=== PATIENT | male | born 1955 | race Caucasian/White ===

== ENCOUNTER 2017-04-10 10:45 | Inpatient (IN) | payer BC ==
[2017-04-04 10:20] VITALS: BMI 37.8
[~2017-04-10 10:45] MED LIST: ACETAMINOPHEN TAB 500 MG TAB PO ONE; HYDROmorphone 0.5 MG/0.5 ML SYRINGE IVP PRN; LIDOCAINE 1% 20 ML VIAL (10MG/ML) FOR IV START INTRADERMA PRN; MELOXICAM 7.5 MG TAB PO ONE; ONDANSETRON 4 MG/2 ML VIAL IVP ONE; TRANEXAMIC ACID 1,000 MG in SODIUM CHLORIDE 0.9% 100 ML IVPB ONE; ceFAZolin 3 GM in SODIUM CHLORIDE 0.9% 100 ML IVPB ONE
[2017-04-10] MEDS: LACTATED RINGERS 1,000 ML IV SCH ×2 (11:33→20:42)
[2017-04-10] MEDS ORDERED: fentaNYL (PF) 50 MCG/ML 2 ML AMP ONE (12:55)
[2017-04-10] MEDS ORDERED: PROPOFOL 10 MG/ML 20 ML VIAL IV ONE (12:55)
[2017-04-10] MEDS ORDERED: diphenhydrAMINE 50 MG/ML 1 ML VIAL ONE (12:55)
[2017-04-10] MEDS ORDERED: TRANEXAMIC ACID 1,000 MG/10 ML VIAL ONE (12:55)
[2017-04-10] MEDS ORDERED: MIDAZOLAM 2 MG/2 ML VIAL ONE (12:55)
[2017-04-10] MEDS ORDERED: SODIUM CHLORIDE 0.9% 100 ML BAG ONE (12:55)
[2017-04-10] MEDS ORDERED: ROPIVACAINE 246.25 MG, EPINEPHrine 0.5 MG, KETOROLAC 30 MG, cloNIDine HCL/PF 80 MCG, WA... MISCELLANE STA ×5 (13:20)
[2017-04-10] MEDS ORDERED: LACTATED RINGERS 1,000 ML IV ONE (13:49)
[2017-04-10] MEDS ORDERED: ceFAZolin 3,000 MG in SODIUM CHLORIDE 0.9% IRRIGATIO 3,000 ML IRRIGATION ONE (13:49)
[2017-04-10] MEDS ORDERED: ONDANSETRON 4 MG/2 ML VIAL IVP PRN (15:26)
[2017-04-10] MEDS ORDERED: HYDROcodone/APAP 7.5-325MG 1 EACH TAB PO PRN (15:26)
[2017-04-10] MEDS ORDERED: MAGNESIUM HYDROXIDE 2,400 MG/10 ML CUP PO PRN (15:26)
[2017-04-10] MEDS ORDERED: BISACODYL 10 MG SUPP RECTAL PRN (15:26)
[2017-04-10] MEDS ORDERED: NALOXONE 0.4 MG/ML 1 ML VIAL IV PRN (15:26)
[2017-04-10] MEDS ORDERED: hydrOXYzine PAMOATE 25 MG CAP PO PRN (15:26)
[2017-04-10] MEDS ORDERED: NA PHOS,M-B/NA PHOS,DI-BA 133 ML ENEMA RECTAL PRN (15:26)
[2017-04-10] MEDS ORDERED: HYDROmorphone 0.5 MG/0.5 ML SYRINGE IVP PRN ×2 (15:26)
[2017-04-10] MEDS ORDERED: ACETAMINOPHEN TAB 325 MG TAB PO PRN (15:26)
--- NOTE | 2017-04-10 15:30 | P.OP ---
Date of Procedure: 04/10/17 Procedure(s) Performed: PREOPERATIVE DIAGNOSIS: Right knee severe osteoarthritis with genu varum POSTOPERATIVE DIAGNOSIS: Right knee severe osteoarthritis with genu varum OPERATION: Right knee cemented total replacement arthroplasty. ANESTHESIA: Spinal ESTIMATED BLOOD LOSS: 100 ml. DIRECTOR OF UNDERGRADUATE ADMISSIONS: Clementine Quijano PA-C (assistance with: patient positioning, retraction, exposure, hemostasis, leg positioning, implantation, irrigation, closure, dressing) COMPLICATIONS: None apparent. COMPONENTS IMPLANTED: Persona system from [employer] INDICATIONS: Mr. Cano is a 61-year-old male with a history of rightknee osteoarthritis. The patient's rightknee is end-stage, and conservative management has failed. The operation of knee replacement has been discussed at length in the office, as well as potential risks and complications. These are inclusive of, but not limited to: bleeding, infection, scarring, discomfort, blood vessel and nerve damage, need for further surgery, failure to relieve symptoms, persistence, recurrence, or worsening of problems, loosening, dislocation, wear, blood clot, pulmonary embolism, , gait dysfunction, stiffness, and other risks as discussed in the office. The patient elects to proceed and the consent form has been signed. PROCEDURE: The patient was taken to the operating room and positioned on the operating room table in the supine position. Anesthesia was initiated. Care was taken to make sure that all pressure points were adequately padded. The operative lower extremity was prepped and draped in the usual aseptic fashion using ChloraPrep. Ioban drape was used for the case and the patient received intravenous antibiotics within one hour of the incision. A pneumotourniquet and leg booker were used for the case. The limb was exsanguinated with an Esmarch bandage and the tourniquet was inflated to 300 mmHg. Time-out was called confirming the patient's identity, side, procedure and administration of antibiotics. The incision was then created midline directly over the knee, carried down through skin and into the subcutaneous tissues and down to fascia. Full thickness subcutaneous medial flap was developed. Medial parapatellar arthrotomy was performed and the interior of the knee was inspected. There was end-stage osteoarthritis of the knee with a mild to moderate genu varum type deformity. The fat pad was excised and proximal medial release on the tibia was completed using meticulous dissection and a curved osteotome. The anterior cruciate ligament was taken down. Note was made of significant attrition of the anterior and significant degenerative appearance of the posterior cruciate ligaments. The exposure was excellent. The knee was flexed 90 degrees and the patella was everted. A spot was chosen on the femur approximately 1 cm anterior to the posterior cruciate ligament insertion and an intramedullary hole was created within the femur. The intramedullary guide was then set to 5 degrees of valgus. The distal cutting block was attached and pinned into position. An appropriate amount of distal femoral resection was set. The oscillating saw was then used to make the distal femoral cut. This cut was confirmed to be flat with the flat end of an osteotome. The retractors were placed around the tibia and the tibial surface was addressed. The angle and depth of resection was adjusted using an extramedullary cutting guide. The guide had a built-in 3 degree posterior slope cut. Once the cutting guide was adjusted appropriately and in line with the axis of the tibia and confirmed to be in good position in relation to the second metatarsal and transmalleolar axis, the tibial cut was then created with protection of the posterior neurovascular structures and the collateral ligaments. The tibial cut surface was removed and sized. Femoral sizing was then accomplished using anterior referencing. Care was taken to analyze the posterior condyles for signs of deficiency or severe wear, and adjustments to the guide were made, as appropriate. 3 degree external rotation pins were placed. The cutting jig for the femur was applied to these pins. The planned cuts were further analyzed prior to performing them with the oscillating saw. No femoral notching was produced. Bone fragments were removed and the cut surfaces were finished, as necessary, with a reciprocating saw. Spacer block technique was then used to confirm that the flexion and extension gaps were equal. Soft tissue releases and adjustment of the tibial and/or femoral cuts were made, as necessary, until the gaps were equal. This included release of the posterior cruciate ligament, which was tight in this patient and , if left unreleased, would have resulted in poor kinematics and possibly early loosening. The femur was then further finished for a posterior cruciate ligament substituting component. Patellar resurfacing was performed using a reamer. The size of the required patellar component was estimated and the patellar surface was then reamed down to a residual thickness which would recreate the [place] thickness with the component. The placement of the patellar component was influenced by the degree of patellar subluxation, if any, noted on the preoperative x-rays. Prior to placing trial components, anesthetic solution consisting of ropivicaine with epinephrine, ketorolac, and clonidine was injected carefully and methodically in a grid pattern using aspiration technique into the soft tissue around the knee circumferentially, starting with the deeper tissues first and progressing to fascia, and then finally the skin/subcutaneous tissue. Particular care was taken when injecting the posterior capsule. The trial components were inserted. The tibial tray was allowed to self center and the patella was noted to track very well. The position of the tibial component was marked and the tibia was then finished for a stemmed tibial component. Cement was mixed on the back table and applied to the final components. Trial components were removed and the cut surfaces of the bone were pulse lavaged thoroughly and dried. Cement was then applied to the tibial surface and pressurized into the surface using finger pressurization technique. The tibial component was then applied and excess cement was removed after it was impacted securely and noted to be flush with the cut surface. In similar fashion, the cement was applied to the cut femoral surface, pressurized in using finger pressurization and the component was impacted into place. Excess cement was removed. The polyethylene spacer was then implanted and locked into position. The patellar component was then applied in similar technique and a patellar clamp was used to hold the patella in place as the cement hardened. Once the cement had fully hardened, the knee was reinspected. Any other cement extrusion was removed and final kinematic testing showed range of motion from 0 to 130 degrees with excellent stability, both medially and laterally and appropriate alignment of the leg. Patellar tracking was excellent. The knee was then thoroughly pulse lavaged with normal saline. The tourniquet was deflated and hemostasis was obtained with electrocautery and IV tranexamic acid, 1 g given at the start of the operation and 1 g at the start of closure. Closure was with #2 Ethibond in the fascia/capsule and supplemented with #2 Quill, 2-0 Vicryl suture was used for the subcutaneous tissues and 3-0 Quill for the skin. Dermabond/Steri-Strips were then applied. A lightly compressive dressing was applied using Webril and an Hebert wrap. The patient was then transferred to stretcher and taken to the recovery room in stable condition. Sponge and needle counts were correct.
--- NOTE | 2017-04-10 15:47 | XR ---
EXAMINATION TYPE: XR knee limited RT DATE OF EXAM: 04/10/2017 CLINICAL HISTORY: Right knee pain and arthritis status post total knee replacement. TECHNIQUE: Portable AP and lateral views of the right knee are obtained immediately postoperatively. COMPARISON: None FINDINGS: Metallic hardware from total right knee arthroplasty is seen and appears satisfactory in a lignment and position. There is evidence of recent surgery with diffuse subcutaneous gas soft tissue swelling noted. IMPRESSION: METALLIC HARDWARE FROM TOTAL RIGHT KNEE ARTHROPLASTY IS SATISFACTORY IN ALIGNMENT.
[2017-04-10] MEDS: HYDROcodone/APAP 7.5-325MG 1 EACH TAB PO PRN ×2 (16:58→22:04)
--- NOTE | 2017-04-10 17:11 | P.CONS ---
History of Present Illness - Reason for Consult Preoperative consultation management, hypertension - History of Present Illness Patient is [id number] male admitted for elective right knee arthroplasty successfully underwent surgery, I saw him in any immediate postoperative period. Patient is clinically doing well did not pass gas yet denied any complaints of pain in the right knee. Patient does have history of hypertension morbidly obese never tested for sleep apnea. Patient denied any fever, chills, cough, dysuria, nausea, vomiting. Review of Systems REVIEW OF SYSTEMS: CONSTITUTIONAL: No fever, no malaise, no fatigue. HEENT: No recent visual problems or hearing problems. Denied any sore throat. CARDIOVASCULAR: No chest pain, orthopnea, PND, no palpitations, no syncope. PULMONARY: No shortness of breath, no cough, no hemoptysis. GASTROINTESTINAL: No diarrhea, no nausea, no vomiting, no abdominal pain. Normoactive bowel sounds. NEUROLOGICAL: No headaches, no weakness, no numbness. HEMATOLOGICAL: Denies any bleeding or petechiae. GENITOURINARY: Denies any burning micturition, frequency, or urgency. MUSCULOSKELETAL/RHEUMATOLOGICAL: As mentioned above ENDOCRINE: Denies any polyuria or polydipsia. The rest of the 14-point review of systems is negative. Past Medical History Past Medical History: Hypertension, Osteoarthritis (OA) History of Any Multi-Drug Resistant Organisms: None Reported Past Surgical History: Orthopedic Surgery, Tonsillectomy Additional Past Surgical History / Comment(s): colonoscopy. egd. RT KNEE SCOPE Past Anesthesia/Blood Transfusion Reactions: No Reported Reaction Past Psychological History: No Psychological Hx Reported Smoking Status: Never smoker Past Alcohol Use History: Occasional Additional Past Alcohol Use History / Comment(s): DRINKS MORE THAN 14 DRINKS WEEKLY Past Drug Use History: None Reported - Past Family History Mother Family Medical History: No Reported History Medications and Allergies Home Medications Medication Instructions Recorded Confirmed Type Losartan/Hydrochlorothiazide 1 tab PO QAM 04/04/17 04/10/17 History [Losartan-Hctz 100-25 mg Tab] traMADol HCL [Ultram] 50 mg PO Q6H PRN 04/04/17 04/04/17 History Aspirin 325 mg PO BID #120 tab 04/10/17 Rx HYDROcodone/APAP 7.5-325MG [[place] 1 - 2 tab PO Q4-6H PRN #90 tab 04/10/17 Rx 7.5-325] Sennosides-Docusate Sodium 1 tab PO BID #60 tablet 04/10/17 Rx [Senokot-S] Allergies Allergy/AdvReac Type Severity Reaction Status Date / Time bee venom protein (honey bee) Allergy Rash/Hives Verified 04/10/17 15:56 Physical Exam Vitals: Vital Signs Temp Pulse Pulse Resp BP Pulse Ox 04/10/17 16:15 67 18 126/65 96 04/10/17 15:58 67 18 125/64 96 04/10/17 15:41 64 18 126/62 100 04/10/17 15:25 96.8 F L 65 18 126/60 100 04/10/17 11:31 97.9 F 77 18 160/77 100 Intake and Output 04/10/17 04/10/17 04/10/17 06:59 14:59 22:59 Intake Total 1601 100 Output Total 100 Balance 1501 100 Intake: IV 1601 100 Output: Estimated Blood Loss 100 PHYSICAL EXAMINATION: GENERAL: The patient is alert and oriented x3, not in any acute distress. obese HEENT: Pupils are round and equally reacting to light. EOMI. No scleral icterus. No conjunctival pallor. Normocephalic, atraumatic. No pharyngeal erythema. No thyromegaly. CARDIOVASCULAR: S1 and S2 present. No murmurs, rubs, or gallops. PULMONARY: Chest is clear to auscultation, no wheezing or crackles. ABDOMEN: Soft, nontender, nondistended, normoactive bowel sounds. No palpable organomegaly. MUSCULOSKELETAL: Deferred to orthopedic surgery EXTREMITIES: No cyanosis, clubbing, or pedal edema. NEUROLOGICAL: Gross neurological examination did not reveal any focal deficits. SKIN: No rashes. Assessment and Plan Plan: #1 hypertension: To avoid perioperative hypotension hour hold off on high-dose antidepressive medication. #2 obesity: I positive sleep apnea patient need to be tested for sleep apnea as an outpatient #3 right knee arthroplasty: Pain management and DVT prophylaxis as per primary service on restart his tramadol to avoid opiate analogies C as much as possible #4 severe osteoarthritis primary
[2017-04-10] MEDS: ceFAZolin 3 GM in SODIUM CHLORIDE 0.9% 100 ML IVPB SCH ×2 (18:28→23:40)
[2017-04-10] MEDS: traMADol 50 MG TAB PO PRN (18:31)
[2017-04-10] MEDS: ASPIRIN 325 MG TAB PO SCH (20:18)
[2017-04-10] MEDS ORDERED: SENNOSIDES-DOCUSATE SODIUM 1 EACH TAB PO SCH (21:00)
[2017-04-10] MEDS ORDERED: TEMAZEPAM 15 MG CAP PO PRN (22:00)
[2017-04-11 02:28] VITALS: RESP 16
[2017-04-11] MEDS: LACTATED RINGERS 1,000 ML IV SCH ×2 (03:31→05:57)
[2017-04-11] MEDS: HYDROcodone/APAP 7.5-325MG 1 EACH TAB PO PRN ×3 (04:03→14:19)
[2017-04-11 08:02] LABS: Basophils % (A) 0 %; CH 32.3; CHCM 33.5; Eosinophils % (A) 0 %; HDW 2.49; HGB 13.8 gm/dL (13.0-17.5); Luc % (Auto) 2; Lymphocytes # (A) 1.7 k/uL (1.0-4.8); Lymphocytes % (A) 9 %; MCH 31.9 pg (25.0-35.0); MCHC 32.9 g/dL (31.0-37.0); MCV 96.9 fL (80.0-100.0); Mean Platelet Volume 6.7; Monocytes % (A) 5 %; Neutrophils # (A) 16.8 k/uL (1.3-7.7); Neutrophils % (A) 84 %; RBC 4.34 m/uL (4.30-5.90); RDW 12.6 % (11.5-15.5); WBC 19.9 k/uL (3.8-10.6); WBC (Perox) 19.52
[2017-04-11] MEDS: ASPIRIN 325 MG TAB PO SCH (08:41)
[2017-04-11] MEDS: traMADol 50 MG TAB PO PRN (08:43)
[2017-04-11 08:57] VITALS: BP 144/74; PULSE 89; TEMP 97.7
[2017-04-11] MEDS ORDERED: MELOXICAM 7.5 MG TAB PO SCH (09:00)
--- NOTE | 2017-04-11 09:39 | P.PN ---
Subjective Progress Note Date: 04/11/17 Objective - Vital Signs Vital signs: Vital Signs Temp 97.7 F 04/11/17 07:00 Pulse 89 04/11/17 07:00 Resp 16 04/11/17 07:00 BP 144/74 04/11/17 07:00 Pulse Ox 99 04/11/17 07:00 Intake & Output 04/10/17 04/11/17 04/11/17 18:59 06:59 18:59 Intake Total 1701 800 Output Total 100 Balance 1601 800 Weight 124.738 kg Intake: IV 1701 Intake, IV Titration 450 Amount Lactated Ringers 1,000 ml 350 @ 100 mls/hr IV .Q10H YUSUF Rx#:[id number] ceFAZolin 3 gm In Sodium 100 Chloride 0.9% 100 ml @ 100 mls/hr IVPB Q8HR YUSUF Rx#:[id number] Oral 350 Output: Estimated Blood Loss 100 Other: Voiding Method Toilet # Voids 1 - Labs CBC & Chem 7: 04/11/17 07:12 Labs: Abnormal Lab Results - Last 24 Hours (Table) 04/11/17 Range/Units 07:12 WBC 19.9 H (3.8-10.6) k/uL Neutrophils # 16.8 H (1.3-7.7) k/uL
--- NOTE | 2017-04-11 11:22 | P.DS ---
Providers Date of admission: 04/10/17 10:45 Expected date of discharge: 04/11/17 Attending physician: Wayne Albrecht Consults: 04/10/17 15:26 Consult Physician Routine Consulting Provider: Aisha Mills Consult Reason/Comments: Medical management Do you want consulting provider notified?: Yes Primary care physician: Krista Hess - Discharge Diagnosis(es) (1) Primary localized osteoarthritis of right knee Current Visit: Yes Status: Acute (2) Status post right knee replacement Current Visit: Yes Status: Acute Hospital Course: This is a pleasant 61-year-old male last seen in our office with complaints of right knee pain. Patient has known history of degenerative arthritis of the right knee and presented to discuss options. After discussion and consideration , patient elected to proceed with a total knee arthroplasty of the right knee. The patient was seen preoperatively and medically cleared for surgery by his primary care physician. The patient was admitted to [facility] and underwent right total knee arthroplasty on 04/11/[address] Albrecht. The procedure was performed without complications or sequelae. The patient has done well postoperatively. The patient was seen and evaluated at bedside today and denies any new complaints. Pain is reasonably controlled. Dressing is clean dry and intact. Incision looks fine with no erythema or active drainage. Calf is soft and nontender. The patient has full foot and ankle motion without difficulty. Patient's right lower extremity is neurovascular intact. Patient is orthopedically stable for discharge to home today. Patient Condition at Discharge: Stable Plan - Discharge Summary New Discharge Prescriptions: New Aspirin 325 mg PO BID #120 tab HYDROcodone/APAP 7.5-325MG [[place] 7.5-325] 1 - 2 tab PO Q4-6H PRN #90 tab PRN Reason: Pain Sennosides-Docusate Sodium [Senokot-S] 1 tab PO BID #60 tablet No Action traMADol HCL [Ultram] 50 mg PO Q6H PRN PRN Reason: Pain Losartan/Hydrochlorothiazide [Losartan-Hctz 100-25 mg Tab] 1 tab PO QAM Discharge Medication List Losartan/Hydrochlorothiazide [Losartan-Hctz 100-25 mg Tab] 1 tab PO QAM [History] traMADol HCL [Ultram] 50 mg PO Q6H PRN 04/04/17 [History] Aspirin 325 mg PO BID #120 tab 04/10/17 [Rx] HYDROcodone/APAP 7.5-325MG [[place] 7.5-325] 1 - 2 tab PO Q4-6H PRN #90 tab [Rx] Sennosides-Docusate Sodium [Senokot-S] 1 tab PO BID #60 tablet 04/10/17 [Rx] Follow up Appointment(s)/Referral(s): Clementine Quijano, PAC [PHYSICIAN HASHER OPERATOR] - 04/26/17 1:15 pm [facility], [NON-STAFF] - Ambulatory/Diagnostic Orders: Continuous Passive Motion (CPM) Machine [DME.AMB1] Time Frame: 3 Weeks, Facility : [facility], Location: Case Management Activity/Diet/Wound Care/Special Instructions: May shower if no drainage from incision. May bear wt as tolerated w walker. CPM 5-6h daily. CPM through [facility], please call when you arrive home [phone] Discharge Disposition: HOME WITH HOME HEALTH SERVICES
[2017-04-11] MEDS ORDERED: MULTIVITAMINS, THERA 1 EACH TAB PO SCH (12:00)
--- NOTE | 2017-04-11 15:39 | P.PN ---
Subjective Progress Note Date: 04/11/17 Progress note being dictated for Dr. Green Interval history:Patient is [id number] male admitted for elective right knee arthroplasty successfully underwent surgery, I saw him in any immediate postoperative period. Patient is clinically doing well did not pass gas yet denied any complaints of pain in the right knee. Patient does have history of hypertension morbidly obese never tested for sleep apnea. Patient denied any fever, chills, cough, dysuria, nausea, vomiting. 04/11/2017: Continues to do well. Pain improved, controlled awaiting to do stairs with physical therapy. Passing flatus, no bowel movement. Incentive spirometer up to 2600. Denies lightheadedness dizziness or focal deficits. Denies chest pain, palpitations or increasing shortness of breath. Objective - Vital Signs Vital signs: Vital Signs Temp 97.7 F 04/11/17 07:00 Pulse 89 04/11/17 07:00 Resp 16 04/11/17 07:00 BP 144/74 04/11/17 07:00 Pulse Ox 99 04/11/17 07:00 Intake & Output 04/10/17 04/11/17 04/11/17 18:59 06:59 18:59 Intake Total 1701 800 Output Total 100 Balance 1601 800 Weight 124.738 kg Intake: IV 1701 Intake, IV Titration 450 Amount Lactated Ringers 1,000 ml 350 @ 100 mls/hr IV .Q10H YUSUF Rx#:[id number] ceFAZolin 3 gm In Sodium 100 Chloride 0.9% 100 ml @ 100 mls/hr IVPB Q8HR YUSUF Rx#:[id number] Oral 350 Output: Estimated Blood Loss 100 Other: Voiding Method Toilet # Voids 1 2 - Exam GENERAL: The patient is alert and oriented x3, not in any acute distress. HEENT: Pupils are round and equally reacting to light. EOMI. No scleral icterus. No conjunctival pallor. Normocephalic, atraumatic. No pharyngeal erythema. No thyromegaly. CARDIOVASCULAR: S1 and S2 present. No murmurs, rubs, or gallops. PULMONARY: Chest is clear to auscultation, no wheezing or crackles. ABDOMEN: Soft, nontender, nondistended, normoactive bowel sounds. No palpable organomegaly. MUSCULOSKELETAL: Deferred to orthopedic surgery EXTREMITIES: No cyanosis, clubbing, or pedal edema. NEUROLOGICAL: Gross neurological examination did not reveal any focal deficits. SKIN: No rashes. - Labs CBC & Chem 7: 04/11/17 07:12 Labs: Abnormal Lab Results - Last 24 Hours (Table) 04/11/17 Range/Units 07:12 WBC 19.9 H (3.8-10.6) k/uL Neutrophils # 16.8 H (1.3-7.7) k/uL Assessment and Plan Assessment: #1 hypertension: #2 obesity: I positive sleep apnea patient need to be tested for sleep apnea as an outpatient, BMI 37 #3 right knee arthroplasty: Pain management and DVT prophylaxis as per primary service. #4 severe osteoarthritis primary Plan: Continue on current medication regime ,monitoring and symptomatic treatment. Pain management and anticoagulation as per orthopedics. Aggressive pulmonary toileting, follow-up with PCP in 1 week. The recommendations to follow. The impression and plan of care has been dictated as directed. : I performed a history and examination of this patient, discussed the same with the dictator. I agree with the dictator's note ,documented as a scribe. Any additional findings or plans will be noted.
== END 2017-04-11 14:46 | disposition home health service (06) | DRG 470 ==
LOC: 2ORMAIN 10:45 → 3SUR 15:47
PROVIDERS: ADMIT Orthopaedic Surgery; ATTEND Orthopaedic Surgery
PROC: 0SRC0J9 Replacement of Right Knee Joint with Synthetic Substitute, Cemented, Open Approach (ICD-10-PCS; principal; 2017-04-10 12:30)
DX: M17.11 Unilateral primary osteoarthritis, right knee (principal); I10 Essential (primary) hypertension; E66.9 Obesity, unspecified; M21.161 Varus deformity, not elsewhere classified, right knee; G47.30 Sleep apnea, unspecified; Z91.030 Bee allergy status; Z79.899 Other long term (current) drug therapy; Z79.82 Long term (current) use of aspirin; Z82.49 Family history of ischemic heart disease and other diseases of the circulatory system
CPT/HCPCS: 85025; 88300

== ENCOUNTER → 2018-11-16 | Day surgery (SDC) | payer BC ==
[2018-11-14 08:37] VITALS: BMI 38.0
[~2018-11-16] MED LIST changes: -ACETAMINOPHEN TAB 500 MG TAB PO ONE; -HYDROmorphone 0.5 MG/0.5 ML SYRINGE IVP PRN; +LACTATED RINGERS 1,000 ML IV SCH; +LIDOCAINE 1% 20 ML VIAL (10MG/ML) FOR IV START INTRADERMA ONE; -LIDOCAINE 1% 20 ML VIAL (10MG/ML) FOR IV START INTRADERMA PRN; +LIDOCAINE 1% INJ 10MG/ML (20 ML MDV) ONE; -MELOXICAM 7.5 MG TAB PO ONE; -ONDANSETRON 4 MG/2 ML VIAL IVP ONE; +PROPOFOL 10 MG/ML 20 ML VIAL IV ONE; -TRANEXAMIC ACID 1,000 MG in SODIUM CHLORIDE 0.9% 100 ML IVPB ONE; -ceFAZolin 3 GM in SODIUM CHLORIDE 0.9% 100 ML IVPB ONE
[2018-11-16 09:41] VITALS: RESP 16; TEMP 97.6
--- NOTE | 2018-11-16 10:50 | P.GSHP ---
History of Present Illness H&P Date: 11/16/18 Chief Complaint: Colon cancer screening Patient here today for colonoscopy. Last colonoscopy 6 years ago. He states that was normal. No family history of colon cancer. No bowel related complaints. Past Medical History Past Medical History: Hypertension, Osteoarthritis (OA) Additional Past Medical History / Comment(s): hx. h pylori History of Any Multi-Drug Resistant Organisms: None Reported Past Surgical History: Joint Replacement, Orthopedic Surgery, Tonsillectomy Additional Past Surgical History / Comment(s): egd,colonoscopy, arthroscopy right knee, right knee replaced Past Anesthesia/Blood Transfusion Reactions: No Reported Reaction Smoking Status: Never smoker - Past Family History Mother Family Medical History: No Reported History Medications and Allergies Home Medications Medication Instructions Recorded Confirmed Type Losartan/Hydrochlorothiazide 1 tab PO QAM 04/04/17 11/16/18 History [Losartan-Hctz 100-25 mg Tab] Acetaminophen [Tylenol Arthritis] 650 mg PO Q6H PRN 11/14/18 11/16/18 History Naproxen Sodium [Aleve] 220 mg PO BID PRN 11/14/18 11/16/18 History Allergies Allergy/AdvReac Type Severity Reaction Status Date / Time bee venom protein (honey bee) Allergy Rash/Hives Verified 11/16/18 09:28 Surgical - Exam Vital Signs Temp Pulse Resp BP Pulse Ox 97.6 F 78 16 198/87 99 11/16/18 09:40 11/16/18 09:40 11/16/18 09:40 11/16/18 09:40 11/16/18 09:40 Physical exam: General: Well-developed, well-nourished HEENT: Normocephalic, sclerae nonicteric Abdomen: Nontender, nondistended Extremities: No edema Neuro: Alert and oriented Assessment and Plan (1) Colon cancer screening Narrative/Plan: Will proceed with colonoscopy at this time Current Visit: Yes Status: Acute Code(s): Z12.11 - ENCOUNTER FOR SCREENING FOR MALIGNANT NEOPLASM OF COLON SNOMED Code(s): 184927552
[2018-11-16 11:29] VITALS: BP 151/76; PULSE 69
--- NOTE | 2018-12-04 15:51 | P.PCN ---
Date of Procedure: 11/16/18 Procedure(s) Performed: PREOPERATIVE DIAGNOSIS: Screening POSTOPERATIVE DIAGNOSIS: Diverticulosis PROCEDURE: Colonoscopy ANESTHESIA: MAC SURGEON: Panda Boogie M.D. SPECIMENS: None ENDOSCOPIC PROCEDURE: The patient was placed on the endoscopy table in the left decubitus position. The Olympus colonoscope was inserted into the anus and passed under direct visualization to the base of the cecum. The appendiceal orifice was visualized. From that point the scope was slowly withdrawn inspecting all surfaces carefully. There were no neoplastic inflammatory or polypoid lesions throughout the cecum, ascending, transverse, descending, sigmoid and rectum. There was mild diverticulosis noted. Digital rectal examination was normal. The patient was taken to the recovery room in stable condition per anesthesia guidelines. RECOMMENDATIONS: Increase fiber.
== END ==
LOC: ORWHC2ENDO 09:17
PROVIDERS: ATTEND Surgery
DX: Z12.11 Encounter for screening for malignant neoplasm of colon (principal); K57.30 Diverticulosis of large intestine without perforation or abscess without bleeding; I10 Essential (primary) hypertension; M19.90 Unspecified osteoarthritis, unspecified site; Z79.1 Long term (current) use of non-steroidal anti-inflammatories (NSAID); Z79.899 Other long term (current) drug therapy; Z91.030 Bee allergy status
CPT/HCPCS: J2001; J2704; G0121

== ENCOUNTER → 2021-10-04 | Outpatient (CLI) | payer BC ==
--- NOTE | 2021-10-05 08:00 | ECHOF ---
Referral Reason:R00.2 palpitations MEASUREMENTS -------- HEIGHT: 182.9 cm WEIGHT: 124.7 kg BP: RVIDd: 3.1 cm (< 3.3) IVSd: 1.5 cm (0.6 - 1.1) LVIDd: 4.6 cm (3.9 - 5.3) LVPWd: 1.8 cm (0.6 - 1.1) IVSs: 2.0 cm LVIDs: 3.2 cm LVPWs: 2.3 cm LAESV Index (A-L): 23.27 ml/m Ao Diam: 3.4 cm (2.0 - 3.7) AV Cusp: 2.1 cm (1.5 - 2.6) LA Diam: 5.0 cm (2.7 - 3.8) MV EXCURSION: 19.856 mm (> 18.000) MV EF SLOPE: 85 mm/s (70 - 150) EPSS: 0.3 cm MV E Bereket: 0.79 m/s MV DecT: 206 ms MV A Bereket: 0.99 m/s MV E/A Ratio: 0.80 RAP: 5.00 mmHg RVSP: 17.69 mmHg FINDINGS -------- Sinus rhythm. This was a technically adequate study. The left ventricular size is normal. There is moderate concentric left ventricular hypertrophy. O verall left ventricular systolic function is normal with, an EF between 55 - 60 %. The diastolic fi lling pattern is normal for the age of the patient 11.04. The right ventricle is normal in size. Normal LA size by volume 22+/-6 ml/m2. The right atrial size is normal. Interatrial and interventricular septum intact. There is mild aortic valve sclerosis. There is no evidence of aortic regurgitation. There is no e vidence of aortic stenosis. Mild mitral regurgitation is present. Trace tricuspid regurgitation present. There is no evidence of pulmonary hypertension. The right ventricular systolic pressure, as measured by Doppler, is 17.69mmHg. Trace/mild (physiologic) pulmonic regurgitation. The aortic root size is normal. IVC Not well visulized. There is no pericardial effusion. CONCLUSIONS -------- 1. The left ventricular size is normal. 2. There is moderate concentric left ventricular hypertrophy. 3. Overall left ventricular systolic function is normal with, an EF between 55 - 60 %. 4. The diastolic filling pattern is normal for the age of the patient 11.04 5. There is mild aortic valve sclerosis. 6. Mild mitral regurgitation is present. 7. Trace tricuspid regurgitation present. 8. There is no evidence of pulmonary hypertension. 9. The right ventricular systolic pressure, as measured by Doppler, is 17.69mmHg. 10. Trace/mild (physiologic) pulmonic regurgitation. EQUITY RESEARCH ANALYST: Sharon Castillo RDCS
== END | disposition home or self-care (01) ==
LOC: RADECHMAIN 13:47
PROVIDERS: ATTEND Family Medicine
DX: R00.2 Palpitations (principal)
CPT/HCPCS: 93306